=== PATIENT | male | born 1970 | race Caucasian/White ===

== ENCOUNTER 2022-03-24 11:25 | Emergency (ER) | payer OTHER ==
[~2022-03-24] VITALS: Ht 213.4 cm; Wt 153.3 kg
[2022-03-24] MEDS ORDERED: IBUPROFEN600 MG PO (14:51)
== END 2022-03-24 15:31 | disposition home or self-care (01) ==
LOC: ER 12:23
DX: S40.011A Contusion of right shoulder, initial encounter (principal); M54.50 Low back pain, unspecified; W01.0XXA Fall on same level from slipping, tripping and stumbling without subsequent striking against object, initial encounter; Y93.01 Activity, walking, marching and hiking; Y92.098 Other place in other non-institutional residence as the place of occurrence of the external cause; I10 Essential (primary) hypertension; E11.9 Type 2 diabetes mellitus without complications
CPT/HCPCS: 71045; 72100; 73522; 99283

== ENCOUNTER → 2025-06-11 | Day surgery (SDC) | payer OTHER ==
[2025-06-08 11:25] LABS: BASOPHILS % 1.1 % (0.0-1.0); EOSINOPHILS % 1.8 % (0.0-6.0); LYMPHOCYTES % 23.8 % (18.0-39.1); MONOCYTES % 7.8 % (4.4-11.3); NEUTROPHILS % 64.2 % (38.7-80.0); RED CELL DISTRIBUTION WIDTH 12.5 % (11.7-14.4)
[~2025-06-11] MED LIST: ACETAMINOPHEN 1000 MG/100 ML 100 ML IV ONE; AQUASOL A50000 UNIT IM; ASPIRIN 325 MG TAB PO SCH; BUPIVACAINE 0.5%/EPI 30 ML SDV INJ ONE; CEFAZOLIN IV SCH; CELECOXIB 100 MG CAP PO SCH; DEXAMETHASONE SOD PHOS INJ 4 MG/ML SDV ONE; DOCUSATE SODIUM 100 MG CAP PO PRN; EPHEDRINE SULFATE INJ 50 MG/ML VIAL ONE; FAMOTIDINE 20 MG/2 ML VIAL IV ONE; FENTANYL CITRATE/PF 100MCG/2 ML INJ ONE; GLIPIZIDE5 MG PO; HYDROCODON-ACE1 EAC9; HYDROCODONE/APAP 7.5MG-325MG 1 EA TAB ONE; HYDROCODONE/APAP 7.5MG-325MG 1 EA TAB PO PRN; IBUPROFEN600 MG PO; JARDIANCE10 MG PO; LIDOCAINE HCL 2% LOCAL INJ 5 ML SDV VIAL INJ ONE; MAGNESIUM100 MG; METOPROLOL SUC100 MG; MIDAZOLAM HCL 2 MG/2 ML VIAL ONE; MYRBETRIQ25 MG; NEURONTIN400 MG PO; ONDANSETRON HCL INJ 2MG/ML 2ML 2 MG/ML VIAL IV PRN; ONDANSETRON HCL INJ 2MG/ML 2ML 2 MG/ML VIAL ONE; PHENYLEPHRINE HCL 1% 10 MG/ML VIAL ONE; PLAVIX75 MG PO; PROPOFOL IV EMULSION 10 MG/ML 20 ML VIAL ONE; PROTONIX20 MG PO; ROPIVACAINE/EPI/CLONIDINE/KET 50 ML SYRINGE INJ ONE; SEVOFLURANE INHAL SOLN 250 ML PEN BTL ONE; SODIUM CHLORIDE 0.9% IV SCH; TIZANIDINE HCL4 M1 PO; TRESIBA FL100 UNIT/1; VENLAFAXINE H37.5 M2 PO
[2025-06-11] MEDS: LACTATED RINGER'S 1,000 ML ONE (05:56)
[2025-06-11] MEDS: CEFAZOLIN SODIUM 2 GM ONE (05:56)
[2025-06-11] MEDS: FENTANYL CITRATE/PF 100MCG/2 ML INJ ONE (09:58)
[2025-06-11] MEDS: HYDROMORPHONE 1MG/1ML INJ ONE (10:30)
[2025-06-11 11:45] VITALS: BP 125/87; PULSE 76; RESP 18; O2SAT 99
== END | disposition home or self-care (01) ==
LOC: OR 05:20
PROVIDERS: ATTEND Orthopaedic Surgery Adult Reconstructive Orthopaedic Surgery
DX: M17.12 Unilateral primary osteoarthritis, left knee (principal); M25.762 Osteophyte, left knee; E11.40 Type 2 diabetes mellitus with diabetic neuropathy, unspecified; I10 Essential (primary) hypertension; E78.00 Pure hypercholesterolemia, unspecified; K21.9 Gastro-esophageal reflux disease without esophagitis; K58.9 Irritable bowel syndrome, unspecified; F41.9 Anxiety disorder, unspecified; Z88.1 Allergy status to other antibiotic agents; Z01.812 Encounter for preprocedural laboratory examination; Z79.02 Long term (current) use of antithrombotics/antiplatelets; Z79.84 Long term (current) use of oral hypoglycemic drugs; Z79.85 Long-term (current) use of injectable non-insulin antidiabetic drugs; Z79.4 Long term (current) use of insulin; Z79.899 Other long term (current) drug therapy; Z86.73 Personal history of transient ischemic attack (TIA), and cerebral infarction without residual deficits
CPT/HCPCS: 27447; 36415 ×2; 73560; 82948; 85025; 86850; 86900; 97116; 97161; C1776 ×5; J0131; J1100; J1171; J1308; J2003; J2250; J2371; J2405; J2704; J3010; J7121